=== PATIENT | male | born 1945 | race Caucasian/White ===

== ENCOUNTER 2024-06-11 10:11 | Outpatient (CLI) | payer MEDICARE, BC ==
[~2024-06-11] VITALS: Ht 171.4 cm; Wt 70.3 kg
[~2024-06-11 10:11] MED LIST: ALBU18HF2 IH; ATAZ200C PO; ATOR10TA87 PO; DUTA0.5C40 PO; LAMI150T23 CORPAK; OMEG1CAP61 PO; VENL75TA PO; [UNRECOGNIZED DRUG - CODE] PO
[2024-06-11] MEDS: albuterol 2.5 MG/3 ML nebule NEB ONE (10:56)
[2024-06-11 10:57] VITALS: PULSE 84; RESP 16; O2SAT 95
[2024-06-11 11:09] VITALS: PULSE 100; RESP 18
== END 2024-06-11 23:59 | disposition home or self-care (01) ==
LOC: RT 10:11
PROVIDERS: ATTEND Family Medicine
DX: J45.909 Unspecified asthma, uncomplicated (principal)
CPT/HCPCS: 94060; 94760